=== PATIENT | male | born 1980 | race African-American/Black ===

== ENCOUNTER 2018-05-03 16:29 | Inpatient (IN) | payer MEDICARE ==
[~2018-05-03] VITALS: Ht 190.5 cm; Wt 82.7 kg
[2018-05-03 16:37] VITALS: BP 145/63; PULSE 103; RESP 20; TEMP 99.5; O2SAT 96
[2018-05-03 19:02] VITALS: O2SAT 97
[2018-05-03] MEDS ORDERED: PLAV75TA29 PO (19:11)
[2018-05-03] MEDS ORDERED: OXYC15TA PO (19:11)
[2018-05-03] MEDS ORDERED: ASPI-516 CHEW (19:11)
[2018-05-03] MEDS ORDERED: MORP1TAB26 PO (19:11)
[2018-05-03 19:50] VITALS: BP 147/67; PULSE 78; RESP 16; O2SAT 99
[2018-05-03] MEDS ORDERED: SODIUM CHLOR 0.9% 1000 ML INJ 1,000 ML IV ONE (20:00)
--- NOTE | 2018-05-03 20:07 | PD ---
HPI Chief Complaint: Sickle Cell Time Seen by Provider: 19:41 Travel History International Travel<30 days: No Contact w/Intl Traveler<30days: No Traveled to known affect area: No History of Present Illness HPI Patient is a 37-year-old male who has history of sickle cell disease coming in saying is having general malaise feeling weak tired for last few days getting worse , pain worsening as well over last day not responding to his ome PO meds, He is global achyness all over ... he fears occlusive crisis is about to start . He has had re-vascularization surgery for ulcers on legs from ischemia occlusive crisis, His Heme MD is Gustavo SCHUMACHER Past Medical History Hx Anticoagulant Therapy: Yes (PLAVIX) Sickle Cell Disease: Yes Social History Alcohol Use: No Tobacco Use: Yes Substance Use: Yes (POT) Allergies-Medications (Allergen,Severity, Reaction): Coded Allergies: No Known Allergies (Unverified , 05/03/18) Reported Meds & Prescriptions Reported Meds & Active Scripts Active Reported Oxycodone (Oxycodone HCl) 15 Mg Tab 15 Mg PO Q8H PRN Morphine ER (Morphine Sulfate) 60 Mg Tab 60 Mg PO DAILY Aspirin 81 Mg Chew 81 Mg CHEW DAILY Plavix (Clopidogrel Bisulfate) 75 Mg Tab 75 Mg PO DAILY Review of Systems Except as stated in HPI: all other systems reviewed are Neg General / Constitutional: Positive: Chills, Other (malaise ) Musculoskeletal: Positive: Weakness, Pain Physical Exam Narrative GENERAL: pt is awake alert no obvious pain no obvious jaundice SKIN: Warm and dry. HEAD: Atraumatic. Normocephalic. EYES: Pupils equal and round. No scleral icterus. No injection or drainage. ENT: No nasal bleeding or discharge. Mucous membranes pink and moist. NECK: Trachea midline. No JVD. CARDIOVASCULAR: Regular rate and rhythm. RESPIRATORY: No accessory muscle use. Clear to auscultation. Breath sounds equal bilaterally. GASTROINTESTINAL: Abdomen soft, non-tender, nondistended. Hepatic and splenic margins not palpable. MUSCULOSKELETAL: Extremities without clubbing, cyanosis, or edema. No obvious deformities. NEUROLOGICAL: Awake and alert. No obvious cranial nerve deficits. Motor grossly within normal limits. Five out of 5 muscle strength in the arms and legs. Normal speech. PSYCHIATRIC: Appropriate mood and affect; insight and judgment normal. Data Data Last Documented VS Vital Signs Date Time Temp Pulse Resp B/P (MAP) Pulse Ox O2 Delivery O2 Flow Rate FiO2 05/03/18 19:50 78 16 147/67 (93) 99 Room Air 05/03/18 16:37 99.5 Orders Orders Complete Blood Count With Diff (05/03/18 18:42) Comprehensive Metabolic Panel (05/03/18 18:42) Retic Count (05/03/18 18:42) Ecg Monitoring (05/03/18 18:42) Iv Access Insert/Monitor (05/03/18 18:42) Oximetry (05/03/18 18:42) Chest, Pa & Lat (05/03/18 ) Oxygen Administration (05/03/18 19:41) Sodium Chlor 0.9% 1000 Ml Inj (Ns 1000 M (05/03/18 20:00) Type And Screen (05/03/18 20:36) Red Blood Cells (Rbc) (05/03/18 20:36) Blood Product Administration (05/03/18 20:36) Sodium Chlor 0.9% 250 Ml Inj (Ns 250 Ml (05/03/18 20:45) Morphine Inj (Morphine Inj) (05/03/18 21:00) Admit Order (Ed Use Only) (05/03/18 21:30) Labs Laboratory Tests Test 05/03/18 19:50 White Blood Count 16.4 TH/MM3 Red Blood Count 1.32 MIL/MM3 Hemoglobin 4.6 GM/DL Hematocrit 13.5 % Mean Corpuscular Volume 101.9 FL Mean Corpuscular Hemoglobin 34.4 PG Mean Corpuscular Hemoglobin Concent 33.7 % Red Cell Distribution Width 25.8 % Platelet Count 230 TH/MM3 Mean Platelet Volume 10.3 FL Neutrophils (%) (Auto) 59.3 % Lymphocytes (%) (Auto) 28.8 % Monocytes (%) (Auto) 9.7 % Eosinophils (%) (Auto) 1.7 % Basophils (%) (Auto) 0.5 % Neutrophils # (Auto) 9.7 TH/MM3 Lymphocytes # (Auto) 4.7 TH/MM3 Monocytes # (Auto) 1.6 TH/MM3 Eosinophils # (Auto) 0.3 TH/MM3 Basophils # (Auto) 0.1 TH/MM3 CBC Comment AUTO DIFF Differential Comment AUTO DIFF CONFIRMED Platelet Estimate NORMAL Platelet Morphology Comment ENLARGED Polychromasia 4.2 % Sickle Cells 1+ Ovalocytes 1+ Reticulocyte Count 21.0 % Absolute Reticulocyte Count 277.4 MIL/L Blood Urea Nitrogen 21 MG/DL Creatinine 1.35 MG/DL Random Glucose 95 MG/DL Total Protein 7.0 GM/DL Albumin 4.1 GM/DL Calcium Level 8.2 MG/DL Alkaline Phosphatase 49 U/L Aspartate Amino Transf (AST/SGOT) 40 U/L Alanine Aminotransferase (ALT/SGPT) 31 U/L Total Bilirubin 2.2 MG/DL Sodium Level 144 MEQ/L Potassium Level 4.0 MEQ/L Chloride Level 111 MEQ/L Carbon Dioxide Level 23.9 MEQ/L Anion Gap 9 MEQ/L Estimat Glomerular Filtration Rate 72 ML/MIN [place] Medical Decision Making Medical Screen Exam Complete: Yes Emergency Medical Condition: Yes Medical Record Reviewed: Yes Differential Diagnosis SCD crisis vs chronic anemia vs hemolysis , vs Acute chest infection vs anemia other Narrative Course 6/13 H and H needs transfusion and admission O2 nasal and CHEST xray no focal infection , retic 21 very high Diagnosis Primary Impression: Sickle cell anemia Tl Zamora MD May 03, 2018 20:07
[2018-05-03 20:26] LABS: AUTOMATED NEUTROPHIL # 9.7 TH/MM3 (1.8-7.7); BASOPHIL # 0.1 TH/MM3 (0-0.2); BASOPHIL % 0.5 % (0.0-2.0); EOSINOPHIL # 0.3 TH/MM3 (0-0.4); EOSINOPHIL % 1.7 % (0.0-4.0); LYMPH % 28.8 % (9.0-44.0); LYMPHOCYTE # 4.7 TH/MM3 (1.0-4.8); MEAN CELL VOLUME 101.9 FL (80.0-100.0); MEAN CORPUSCULAR HEMOGLOBIN 34.4 PG (27.0-34.0); MEAN CORPUSCULAR HGB CONC 33.7 % (32.0-36.0); MEAN PLATELET VOLUME 10.3 FL (7.0-11.0); MONO % 9.7 % (0.0-8.0); MONOCYTE # 1.6 TH/MM3 (0-0.9); NEUT % 59.3 % (16.0-70.0); PLATELET COUNT 230 TH/MM3 (150-450); RED BLOOD COUNT 1.32 MIL/MM3 (4.50-5.90); RED CELL DISTRIBUTION WIDTH 25.8 % (11.6-17.2); RETIC # 277.4 MIL/L (20.0-150.0); WHITE BLOOD COUNT 16.4 TH/MM3 (4.0-11.0)
--- NOTE | 2018-05-03 20:27 | RADRPT ---
EXAM DATE: 05/03/2018 8:21 PM EDT AGE/SEX: 37 years / Male INDICATIONS: Weakness and fever. Sickle cell crisis. CLINICAL DATA: This is the patient's initial encounter. Patient reports that signs and symptoms have been present for 1 day and indicates a pain score of 0/10. MEDICAL/SURGICAL HISTORY: Sickle Cell disease. None. COMPARISON: No prior exams available for comparison. FINDINGS: The heart appears mildly enlarged. The lungs are clear. No focal or segmental pneumonia is identified . Visualized bony structures are grossly intact. CONCLUSION: Mild cardiomegaly. Electronically signed by: Gray Aguilar MD 05/03/2018 8:26 PM EDT
[2018-05-03 20:35] LABS: HEMATOCRIT 13.5 % (39.0-51.0); HEMOGLOBIN 4.6 GM/DL (13.0-17.0)
[2018-05-03] MEDS ORDERED: SODIUM CHLOR 0.9% 250 ML INJ 250 ML IV ONE (20:45)
[2018-05-03 20:47] LABS: ALBUMIN 4.1 GM/DL (3.4-5.0); AST (GOT) 40 U/L (15-37); BICARBONATE 23.9 MEQ/L (21.0-32.0); BLOOD UREA NITROGEN 21 MG/DL (7-18); CALCIUM 8.2 MG/DL (8.5-10.1); CHLORIDE 111 MEQ/L (98-107); CREATININE 1.35 MG/DL (0.60-1.30); GLOMERULAR FILTRATION RATE 72 ML/MIN (>89); GLUCOSE,RANDOM 95 MG/DL (74-106); SODIUM (NA) 144 MEQ/L (136-145)
[2018-05-03 20:48] LABS: ALT (GPT) 31 U/L (12-78)
[2018-05-03 20:50] LABS: ALKALINE PHOSPHATASE 49 U/L (45-117); TOTAL BILIRUBIN ADULT 2.2 MG/DL (0.2-1.0)
[2018-05-03] MEDS ORDERED: MORPHINE SULFATE 4 MG/ML INJ IV PUSH ONE (21:00)
[2018-05-03 21:20] LABS: OVALOCYTES 1+ (NORMAL); SICKLE CELLS 1+ (NORMAL)
[2018-05-03 21:22] LABS: POLYCHROMASIA 4.2 % (0.0-1.9)
[2018-05-03] MEDS ORDERED: SODIUM CHLOR 0.9% 1000 ML INJ 1,000 ML IV SCH (22:18)
[2018-05-03] MEDS ORDERED: RESP: ALBUTEROL 2.5 MG/IPRATROPIUM 0.5 MG NEB (PRN) INH (22:30)
[2018-05-03] MEDS ORDERED: MAGNESIUM HYDROXIDE SUSP 30 ML CUP PO PRN (22:30)
[2018-05-03] MEDS ORDERED: DOCUSATE SODIUM 50 MG/SENNA 8.6 MG TAB PO PRN (22:30)
[2018-05-03] MEDS ORDERED: SODIUM CHLORIDE 0.9% FLUSH 10 ML FLUSH IV FLUSH PRN (22:30)
[2018-05-03] MEDS ORDERED: diphenhydrAMINE HCL 25 MG CAP PO PRN (22:30)
[2018-05-03] MEDS ORDERED: MORPHINE SULFATE 2 MG/ML SYRINGE IV PUSH PRN (22:30)
[2018-05-03] MEDS ORDERED: MORPHINE SULFATE 8 MG/ML INJ IV PUSH PRN (22:30)
[2018-05-03] MEDS ORDERED: ACETAMINOPHEN 325 MG TAB PO PRN (22:30)
[2018-05-03 22:50] VITALS: BP 133/88; PULSE 78; RESP 16; TEMP 97.7; O2SAT 97
--- NOTE | 2018-05-03 22:55 | HHI.HP ---
HPI Service [facility] ([place], [place]) Primary Care Physician Tristen Swenson D.O. Admission Diagnosis SCC severe anemia . Diagnoses: (1) Sickle cell anemia Chief Complaint: Headaches, body aches, fever, nausea Travel History International Travel<30 Days: No Contact w/Intl Traveler <30 Da: No Traveled to Known Affected Are: No History of Present Illness Mr. Gonzalez is a 37-year-old male with a history of sickle cell disease, chronic lower extremity skin ulcers, cerebral aneurysm, gout, and hypertension who presented to the emergency room on 05/03/2018 complaining of severe generalized pain and fatigue. He was found to have a hemoglobin of 4.6 and hematocrit of 13.5 and was admitted to [facility] [place] [facility] service for medical management and further evaluation. The patient is seen in the CDU. He reports symptoms started yesterday with body aches, suspected fever (see felt hot), headache, nausea with vomiting 1, and diarrhea. Denies any blood in vomit or stool or black or tarry discoloration of vomit or stool. The patient reports he may have an STD and has blood in his semen and was contacted by the public health department to inform him he might have a sexually transmitted disease as reported by a sexual contact of his who tested positive. The patient is on Plavix and baby aspirin for brain aneurysm stenting done in [place] [address] Conti at [facility]. Review of Systems Except as stated in HPI: all other systems reviewed are Neg Past Family Social History Past Medical History Sickle cell disease Brain aneurysm with recent stent placement Chronic lower extremity skin ulcers Hypertension . Past Surgical History Stents in brain aneurysm November [address] Conti in [place] at [facility] Weekly debridement of right foot and left ankle chronic wounds 3 skin grafts [place] 2009 and 2010 . Reported Medications Reported Meds & Active Scripts Active Reported Oxycodone (Oxycodone HCl) 15 Mg Tab 15 Mg PO Q8H PRN Morphine ER (Morphine Sulfate) 60 Mg Tab 60 Mg PO DAILY Aspirin 81 Mg Chew 81 Mg CHEW DAILY Plavix (Clopidogrel Bisulfate) 75 Mg Tab 75 Mg PO DAILY . Allergies: Coded Allergies: No Known Allergies (Unverified , 05/03/18) Family History Brother and uncle with sickle cell disease . Social History Tobacco: Occasionally smokes cigarettes -full cessation advised Alcohol: Denies Illicit Drugs: Smokes marijuana . Physical Exam Vital Signs Vital Signs Date Time Temp Pulse Resp B/P (MAP) Pulse Ox O2 Delivery O2 Flow Rate FiO2 05/03/18 19:50 78 16 147/67 (93) 99 Room Air 05/03/18 19:02 97 Room Air 05/03/18 16:37 99.5 103 20 145/63 (90) 96 Physical Exam GENERAL: This is a well-nourished, well-developed patient, in no apparent distress. SKIN: No rashes. Cool and dry. Did not personally visualize chronic wounds on right foot and left ankle -currently covered with compression stockings. HEAD: Atraumatic. Normocephalic. EYES: No scleral icterus. No injection or drainage. ENT: Nose without bleeding, purulent drainage. NECK: Trachea midline. No JVD. CARDIOVASCULAR: Regular rate and rhythm without murmurs, gallops, or rubs. RESPIRATORY: Clear to auscultation. Breath sounds equal bilaterally. No wheezes , rales, or rhonchi. GASTROINTESTINAL: Abdomen soft, non-tender, nondistended. No guarding. MUSCULOSKELETAL: Extremities without clubbing, cyanosis, or edema. No calf tenderness. NEUROLOGICAL: Awake and alert. Motor and sensory grossly within normal limits. Normal speech. . Laboratory Laboratory Tests Test 05/03/18 19:50 White Blood Count 16.4 Red Blood Count 1.32 Hemoglobin 4.6 Hematocrit 13.5 Mean Corpuscular Volume 101.9 Mean Corpuscular Hemoglobin 34.4 Mean Corpuscular Hemoglobin Concent 33.7 Red Cell Distribution Width 25.8 Platelet Count 230 Mean Platelet Volume 10.3 Neutrophils (%) (Auto) 59.3 Lymphocytes (%) (Auto) 28.8 Monocytes (%) (Auto) 9.7 Eosinophils (%) (Auto) 1.7 Basophils (%) (Auto) 0.5 Neutrophils # (Auto) 9.7 Lymphocytes # (Auto) 4.7 Monocytes # (Auto) 1.6 Eosinophils # (Auto) 0.3 Basophils # (Auto) 0.1 CBC Comment AUTO DIFF Differential Comment AUTO DIFF CONFIRMED Platelet Estimate NORMAL Platelet Morphology Comment ENLARGED Polychromasia 4.2 Sickle Cells 1+ Ovalocytes 1+ Reticulocyte Count 21.0 Absolute Reticulocyte Count 277.4 Blood Urea Nitrogen 21 Creatinine 1.35 Random Glucose 95 Total Protein 7.0 Albumin 4.1 Calcium Level 8.2 Alkaline Phosphatase 49 Aspartate Amino Transf (AST/SGOT) 40 Alanine Aminotransferase (ALT/SGPT) 31 Total Bilirubin 2.2 Sodium Level 144 Potassium Level 4.0 Chloride Level 111 Carbon Dioxide Level 23.9 Anion Gap 9 Estimat Glomerular Filtration Rate 72 Result Diagram: 05/03/18 1950 05/03/18 1950 Imaging Last Impressions Chest X-Ray 05/03/18 0000 Signed Impressions: CONCLUSION: Mild cardiomegaly. Caprini VTE Risk Assessment Caprini VTE Risk Assessment: Mod/High Risk (score >= 2) Caprini Risk Assessment Model Point Value = 1 Point Value = 2 Point Value = 3 Point Value = 5 Age 41-60 Minor surgery BMI > 25 kg/m2 Swollen legs Varicose veins or History of unexplained or recurrent spontaneous Oral contraceptives or hormone replacement Sepsis (< 1 month) Serious lung disease, including pneumonia (< 1 month) Abnormal pulmonary function Acute myocardial infarction Congestive heart failure (< 1 month) History of inflammatory bowel disease Medical patient at bed rest Age 61-74 Arthroscopic surgery Major open surgery (> 45 min) Laparoscopic surgery (> 45 min) Malignancy Confined to bed (> 72 hours) Immobilizing plaster cast Central venous access Age >= 75 History of VTE Family history of VTE Factor V Leiden Prothrombin [id number] Lupus anticoagulant Anticardiolipin antibodies Elevated serum homocysteine Heparin-induced thrombocytopenia Other congenital or acquired thrombophilia Stroke (< 1 month) Elective arthroplasty Hip, pelvis, or leg fracture Acute spinal cord injury (< 1 month) Prophylaxis Regimen Total Risk Factor Score Risk Level Prophylaxis Regimen 0-1 Low Early ambulation 2 Moderate Order ONE of the following: *Sequential Compression Device (SCD) *Heparin 5000 units SQ BID 3-4 Higher Order ONE of the following medications: *Heparin 5000 units SQ TID *Enoxaparin/Lovenox 40 mg SQ daily (WT < 150 kg, CrCl > 30 mL/min) *Enoxaparin/Lovenox 30 mg SQ daily (WT < 150 kg, CrCl > 10-29 mL/min) *Enoxaparin/Lovenox 30 mg SQ BID (WT < 150 kg, CrCl > 30 mL/min) AND/OR *Sequential Compression Device (SCD) 5 or more Highest Order ONE of the following medications: *Heparin 5000 units SQ TID (Preferred with Epidurals) *Enoxaparin/Lovenox 40 mg SQ daily (WT < 150 kg, CrCl > 30 mL/min) *Enoxaparin/Lovenox 30 mg SQ daily (WT < 150 kg, CrCl > 10-29 mL/min) *Enoxaparin/Lovenox 30 mg SQ BID (WT < 150 kg, CrCl > 30 mL/min) AND *Sequential Compression Device (SCD) Assessment and Plan Assessment and Plan Mr. Gonzalez is a 37-year-old male with a history of sickle cell disease, chronic lower extremity skin ulcers, cerebral aneurysm, gout, and hypertension who presented to the emergency room on 05/03/2018 complaining of severe generalized pain and fatigue. He was found to have a hemoglobin of 4.6 and hematocrit of 13.5 and [facility] further evaluation. Sickle cell crisis suspected Hemoglobin sickle cell disease - Continue home long-acting morphine with oxycodone 10 mg every 4 hours as needed for pain 4 through 10 and IV morphine for breakthrough pain - Normal saline at 100 cc/h - Follows with Dr. Chen as an outpatient -consult if needed - Patient reports that he may have STD infection currently as he was notified by the public health department that a partner reported him as a sexual contact after testing positive for an STD -patient reports having blood in his semen - will send urine for UA with culture and sensitivity if indicated and will also check for gonorrhea and chlamydia - will treat based on test results - infection may play contributing role in SCC Severe anemia - Hemoglobin 4.6 and hematocrit 13.5 on admission - Transfuse 2 units packed red blood cells - Repeat H&H following transfusion and follow results -transfuse if needed Brain aneurysm with stent placement by Dr. Marmolejo in [id number] - continue Plavix and baby aspirin as prescribed by Dr. Marmolejo Chronic wounds to right foot and left ankle - Consult wound care nurse . Discussed Condition With Patient, RN, and Dr. Zelaya . Physician Certification 2 Midnight Certification Type: Admission for Inpatient Services Order for Inpatient Services The services are ordered in accordance with Medicare regulations or non- Medicare payer requirements, as applicable. In the case of services not specified as inpatient-only, they are appropriately provided as inpatient services in accordance with the 2-midnight benchmark. Estimated LOS (days): 3 days is the estimated time the patient will need to remain in the hospital, assuming treatment plan goals are met and no additional complications. Post-Hospital Plan: Home Fatmata Jones May 03, 2018 22:55
[2018-05-03] MEDS ORDERED: ONDANSETRON ODT 4 MG TAB PO PRN (23:15)
[2018-05-03 23:17] VITALS: BP 114/64; PULSE 78; RESP 16; TEMP 98.7; O2SAT 99
[2018-05-03] MEDS: MORPHINE SULFATE 30 MG CONTROLLED RELEASE TAB PO SCH (23:27)
[2018-05-03] MEDS: MORPHINE SULFATE 4 MG/ML INJ IV PUSH PRN (23:27)
[2018-05-04 01:03] VITALS: BP 134/62; PULSE 63; RESP 18; TEMP 98.7; O2SAT 98
[2018-05-04 01:37] VITALS: BP 134/62; PULSE 63; RESP 18; TEMP 98.1; O2SAT 98
[2018-05-04 01:53] VITALS: BP 139/67; PULSE 70; RESP 18; TEMP 98.1; O2SAT 98
[2018-05-04] MEDS: MORPHINE SULFATE 4 MG/ML INJ IV PUSH PRN ×3 (03:11→08:47)
[2018-05-04 04:00] VITALS: BP 133/62; PULSE 67; RESP 17; TEMP 97.7; O2SAT 96
[2018-05-04 08:00] VITALS: BP 175/84; PULSE 60; RESP 20; TEMP 97.8; O2SAT 100
[2018-05-04] MEDS: MORPHINE SULFATE 30 MG CONTROLLED RELEASE TAB PO SCH (08:04)
[2018-05-04 08:11] VITALS: O2SAT 96
[2018-05-04] MEDS ORDERED: CLOPIDOGREL 75 MG TAB PO SCH (09:00)
[2018-05-04] MEDS ORDERED: ASPIRIN 81 MG CHEW TAB CHEW SCH (09:00)
[2018-05-04] MEDS ORDERED: SODIUM CHLORIDE 0.9% FLUSH 10 ML FLUSH IV FLUSH SCH (09:00)
== END 2018-05-04 09:03 | disposition left against medical advice (07) | DRG 812 ==
LOC: NEPE 16:29 → NEDA 21:31 → N04B 05-04 01:07
PROVIDERS: ADMIT Family Medicine; ATTEND Family Medicine
DX: D57.00 Hb-SS disease with crisis, unspecified (principal); I67.1 Cerebral aneurysm, nonruptured; L97.329 Non-pressure chronic ulcer of left ankle with unspecified severity; L97.519 Non-pressure chronic ulcer of other part of right foot with unspecified severity; I10 Essential (primary) hypertension; M10.9 Gout, unspecified; A64 Unspecified sexually transmitted disease; F12.90 Cannabis use, unspecified, uncomplicated; F17.210 Nicotine dependence, cigarettes, uncomplicated; Z83.2 Family history of diseases of the blood and blood-forming organs and certain disorders involving the immune mechanism
CPT/HCPCS: 36430; 71046; 80053; 85025; 85044; 86850; 86900; 86901; 86920; J2270; J7030; J7050; P9016